=== PATIENT | male | born 1990 | race Caucasian/White ===

== ENCOUNTER 2018-01-27 18:36 | Emergency (ER) | payer SELFPAY ==
[~2018-01-27] VITALS: Ht 175.3 cm; Wt 86.6 kg
[2018-01-27 18:40] VITALS: BP 137/72
[2018-01-27] MEDS ORDERED: FLUORESCEIN OPTH STRIP 0.6 MG ONE (20:20)
[2018-01-27] MEDS ORDERED: TETRACAINE HCL/PF 0.5% OPTH 4 ML BTL ONE (20:20)
[2018-01-27 21:00] VITALS: BP 125/63
== END 2018-01-27 21:00 | disposition home or self-care (01) ==
LOC: MED 18:36
DX: T15.91XA Foreign body on external eye, part unspecified, right eye, initial encounter (principal); W22.8XXA Striking against or struck by other objects, initial encounter; Y93.89 Activity, other specified; Y92.89 Other specified places as the place of occurrence of the external cause; Y99.8 Other external cause status
CPT/HCPCS: 65205; 99284